=== PATIENT | female | born 1945 | race Two or more races ===

== ENCOUNTER 2018-01-28 10:43 | Outpatient (CLI) | payer SELFPAY | END 2018-01-28 23:59 | disposition home or self-care (01) | LOC: WOU 10:43 | PROVIDERS: ATTEND Podiatrist Foot & Ankle Surgery | DX: L97.822 Non-pressure chronic ulcer of other part of left lower leg with fat layer exposed (principal); L97.815 Non-pressure chronic ulcer of other part of right lower leg with muscle involvement without evidence of necrosis; Z96.652 Presence of left artificial knee joint; I10 Essential (primary) hypertension; Z82.49 Family history of ischemic heart disease and other diseases of the circulatory system; Z81.1 Family history of alcohol abuse and dependence; Z82.61 Family history of arthritis; S81.812S Laceration without foreign body, left lower leg, sequela; S81.811S Laceration without foreign body, right lower leg, sequela; L08.9 Local infection of the skin and subcutaneous tissue, unspecified; W22.8XXS Striking against or struck by other objects, sequela | CPT/HCPCS: 11042; 88304-TC; 88312-TC; A6402; Z7610 ==

== ENCOUNTER 2018-02-07 13:15 | Outpatient (CLI) | payer SELFPAY | END 2018-02-07 23:59 | disposition home or self-care (01) | LOC: WOU 13:15 | PROVIDERS: ATTEND Podiatrist Foot & Ankle Surgery | DX: L97.213 Non-pressure chronic ulcer of right calf with necrosis of muscle (principal); L97.823 Non-pressure chronic ulcer of other part of left lower leg with necrosis of muscle | CPT/HCPCS: 99213; A6402; Z7610; G0463 ==

== ENCOUNTER 2018-02-21 12:57 | Outpatient (CLI) | payer SELFPAY | END 2018-02-21 23:59 | disposition home or self-care (01) | LOC: WOU 12:57 | PROVIDERS: ATTEND Podiatrist Foot & Ankle Surgery | DX: L97.822 Non-pressure chronic ulcer of other part of left lower leg with fat layer exposed (principal); L97.813 Non-pressure chronic ulcer of other part of right lower leg with necrosis of muscle; I87.8 Other specified disorders of veins; R60.0 Localized edema | CPT/HCPCS: 11043; A6253; A6402; Z7610 ==

== ENCOUNTER 2018-04-25 12:50 | Outpatient (CLI) | payer SELFPAY | END 2018-04-25 23:59 | disposition home or self-care (01) | LOC: WOU 12:50 | PROVIDERS: ATTEND Podiatrist Foot & Ankle Surgery | DX: I87.2 Venous insufficiency (chronic) (peripheral) (principal); L97.815 Non-pressure chronic ulcer of other part of right lower leg with muscle involvement without evidence of necrosis; R60.0 Localized edema | CPT/HCPCS: 11042; A6402 ==

== ENCOUNTER 2018-05-23 12:00 | Outpatient (CLI) | payer SELFPAY | END 2018-05-23 23:59 | disposition home or self-care (01) | LOC: WOU 12:00 | PROVIDERS: ATTEND Podiatrist Foot & Ankle Surgery | DX: L97.815 Non-pressure chronic ulcer of other part of right lower leg with muscle involvement without evidence of necrosis (principal); Z99.81 Dependence on supplemental oxygen | CPT/HCPCS: 11042; A6402; Z7610 ==